=== PATIENT | male | born 1935 | race Caucasian/White ===

== ENCOUNTER → 2018-03-11 | Day surgery (SDC) | payer MEDICARE, OTHER ==
[~2018-03-11] MED LIST: Lactated Ringers 1,000 ML IV SCH; Propofol 200 MG/20 ML SDV IV ONE
[2018-03-11 09:25] VITALS: BP 133/69
--- NOTE | 2018-03-11 11:27 | OR ---
DATE OF OPERATION: 03/09/2018 PREOPERATIVE DIAGNOSIS: FOLLOW UP POLYPS. POSTOPERATIVE DIAGNOSIS: FOLLOW UP POLYPS. SURGEON: Nato Cole MD PROCEDURE: FULL-LENGTH COLONOSCOPY WITH SNARE POLYPECTOMY X2. 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 COMPLICATIONS: None. SPECIMEN: Two tubular adenomas, right colon. FINDINGS: 1. Full-length colonoscopy. 2. Two small sessile tubular adenomas, proximal ascending colon. RECOMMENDATIONS: Follow up colonoscopy on as needed basis at this point. INDICATIONS: Mr. Clemons has had multiple scopes in the past usually with couple small sessile polyps removed. He was sent by his primary provider for a routine followup. DESCRIPTION OF PROCEDURE: The patient was prepped and draped, placed in the left lateral decubitus position. A lubricated Olympus colonoscope was inserted and easily advanced to the cecum. Direct visualization of the ileocecal valve and appendiceal orifice was accomplished. The bowel prep was fine. The cecal pouch was fine. In the proximal ascending colon, the patient had 2 small sessile polyps, each removed with a snare and Suction Polyp Trap #1. The rest of the ascending and transverse colon were benign. Throughout the entire left colon, I could find no signs of any polyp recurrence, mass, ulceration, or bleeding sites. No vascular abnormalities or signs of colitis. There were no significant signs of diverticula. The rectal vault was unremarkable. Retroflexion of scope in the rectum showed no anal lesions. Air was suctioned. Scope removed without complication. BENOIT/TOÑO /[id number]
== END ==
LOC: CC.SDS 06:59
PROVIDERS: ATTEND Family Medicine
DX: Z12.11 Encounter for screening for malignant neoplasm of colon (principal); D12.2 Benign neoplasm of ascending colon; K21.9 Gastro-esophageal reflux disease without esophagitis; I48.91 Unspecified atrial fibrillation; N40.1 Benign prostatic hyperplasia with lower urinary tract symptoms; R35.1 Nocturia; E78.5 Hyperlipidemia, unspecified; E03.9 Hypothyroidism, unspecified; M16.0 Bilateral primary osteoarthritis of hip; M47.816 Spondylosis without myelopathy or radiculopathy, lumbar region; Z79.02 Long term (current) use of antithrombotics/antiplatelets; Z79.82 Long term (current) use of aspirin; Z79.899 Other long term (current) drug therapy; Z86.010 Personal history of colon polyps
CPT/HCPCS: 00811; J2704; J7120